=== PATIENT | male | born 1990 ===

== ENCOUNTER → 2025-07-05 | Outpatient (CLI) | payer OTHER ==
[~2025-07-05] MED LIST: ARIP15; ARIP30; METPHE20ER; MULVITMINF; RITALIN LA
[2025-07-07 13:46] LABS: Campylobacter Sp Not Detected (NOT DETECT); Salmonella Sp Not Detected (NOT DETECT); Vibrio Sp Not Detected (NOT DETECT)
[2025-07-07 13:47] LABS: E. Coli O157 Not Detected (NOT DETECT); Enteroaggregative E. coli-EAEC Not Detected (NOT DETECT); Enteropathogenic E. coli-EPEC Not Detected (NOT DETECT); Enterotoxigenic E. coli-ETEC Not Detected (NOT DETECT); Shiga Toxin-prod E. coli-STEC Not Detected (NOT DETECT); Shigella/Enteroin E. coli-EIEC Not Detected (NOT DETECT)
[2025-07-12 15:33] LABS: CALPROTECTIN,FECAL 17 ug/g (<=49)
== END ==
LOC: LAB SHORT 17:30 → LAB 17:30
PROVIDERS: Family Medicine
DX: K58.0 Irritable bowel syndrome with diarrhea (principal); K92.1 Melena; Z91.018 Allergy to other foods
CPT/HCPCS: 83993; 87507